=== PATIENT | female | born 1975 | race Caucasian/White ===

== ENCOUNTER 2019-05-31 10:23 | Emergency (ER) | payer OTHER ==
[2019-05-31] MEDS ORDERED: SODIUM CHLORIDE 0.9% 1,000 ML IV ONE ×2 (11:51→14:08)
[2019-05-31] MEDS ORDERED: DEXAMETHASONE 10 MG/ML VIAL IVP STA (11:51)
--- NOTE | 2019-05-31 11:54 | ED Physician Documentation ---
History of Present Illness - Stated complaint Stated Complaint: BODY ACHES - Chief complaint Chief Complaint: Fever - History obtained from History obtained from: Patient, Family - History of Present Illness Timing: Other (3 months ago) - Additonal information Additional information: 43-year-old female with a history of chronic fatigue complains of feeling weak and achy for the past 3 months. She states that she has been hiding this and she does not have an acute illness that she can register. She states that she has increased weakness decreased appetite aversion to fluids sweats and insomnia. Review of Systems Constitutional: reports: Chills, Myalgias, Fatigue, Sweats. denies: Fever Eyes: denies: Decreased vision Ears: denies: Ear pain Nose: reports: Congestion. denies: Rhinorrhea / runny nose Throat: denies: Sore throat Cardiac: denies: Chest pain / pressure, Palpitations Respiratory: reports: Cough. denies: Dyspnea GI: denies: Abdominal Pain, Nausea, Vomiting, Diarrhea : denies: Dysuria, Frequency Skin: denies: Rash Musculoskeletal: denies: Neck pain, Back pain, Extremity pain Neurologic: reports: Generalized weakness, Altered mental status. 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 - Present Medications Home Medications: Ambulatory Orders Medication Instructions Recorded Confirmed Dextroamphetamine/Amphetamine 05/31/19 [Adderall 10 mg Tablet] Levothyroxine Sodium 05/31/19 Promethazine [Phenergan] 1 05/31/19 Sulfamethoxazole/Trimethoprim 1 each PO BID #10 tablet 05/31/19 [Sulfamethoxazole-Tmp Ds Tablet] traZODone [Desyrel] 50 mg PO HS #30 tablet 05/31/19 - Allergies Allergies/Adverse Reactions: Allergies Allergy/AdvReac Type Severity Reaction Status Date / Time acetaminophen [From Percocet] Allergy Unknown Verified 05/31/19 10:40 hydrocodone [From Vicodin] Allergy Unknown Verified 05/31/19 10:40 oxycodone [From Percocet] Allergy Unknown Verified 05/31/19 10:40 Penicillins Allergy Unknown Verified 05/31/19 10:40 - Social History Does the pt smoke?: No Smoking Status: Never smoker Does the pt drink ETOH?: No Does the pt have substance abuse?: No PD ED PE NORMAL - Vitals Vital signs reviewed: Yes (hypertensive ) - General General: Well developed/nourished, Other (pale appearing female with dry mucous membranes appears anxious and is withdrawn.) - HEENT HEENT: Atraumatic, PERRL, EOMI, Ears normal, Pharynx benign, Other (dry mucous m embranes ) - Neck Neck: Supple, no meningeal sign, No bony TTP - Cardiac Cardiac: RRR, No murmur - Respiratory Respiratory: No respiratory distress, Clear bilaterally - Abdomen Abdomen: Normal bowel sounds, Soft, Non tender, Non distended, No organomegaly - Back Back: No CVA TTP, No spinal TTP - Derm Derm: Normal color, Warm and dry, No rash - Extremities Extremities: No deformity, No edema - Neuro Neuro: duct maker 2-12 intact, No motor deficit, No sensory deficit, Normal speech Eye Opening: Spontaneous Motor: Obeys Commands Verbal: Oriented GCS Score: 15 - Psych Psych: Other (mood is defeated and the affect is blunted. There is no flight of ideas or pressured speech. ) Results - Vitals Vitals: Vital Signs - 24 hr 05/31/19 05/31/19 05/31/19 10:34 11:21 12:46 Temperature 37.1 C 37.3 C Heart Rate 84 76 Respiratory 19 28 H Rate Blood Pressure 144/75 H 123/94 H O2 Saturation 100 100 05/31/19 14:30 Temperature Heart Rate 76 Respiratory 24 Rate Blood Pressure 128/86 H O2 Saturation 100 Oxygen O2 Source Room air - Labs Labs: Laboratory Tests 05/31/19 05/31/19 05/31/19 10:44 12:15 12:15 WBC 5.9 RBC 4.25 Hgb 14.2 Hct 40.7 MCV 95.8 MCH 33.4 H MCHC 34.9 RDW 12.0 Plt Count 339 MPV 9.5 Neut # (Auto) 4.0 Lymph # (Auto) 1.3 L [place] # (Auto) 0.4 Eos # (Auto) 0.1 Baso # (Auto) 0.0 Absolute Nucleated RBC 0.00 Nucleated RBC % 0.0 Sodium 141 Potassium 3.2 L Chloride 105 Carbon Dioxide 20 L Anion Gap 16.0 H BUN 8 Creatinine 0.6 Estimated GFR (MDRD) 109 Glucose 107 H Lactic Acid Calcium 10.1 Total Bilirubin 0.9 AST 20 ALT 22 Alkaline Phosphatase 91 Total Protein 8.1 Albumin 5.1 Globulin 3.0 Albumin/Globulin Ratio 1.7 Lipase 28 TSH Urine Color Urine Clarity Urine pH Ur Specific [place] Urine Protein Urine Glucose (UA) Urine Ketones Urine Occult Blood Urine Nitrite Urine Bilirubin Urine Urobilinogen Ur Leukocyte Esterase Urine RBC Urine WBC Ur Squamous Epith Cells Urine Bacteria Ur Microscopic Review Urine Culture Comments Influenza A (Rapid) Negative Influenza B (Rapid) Negative 05/31/19 05/31/19 05/31/19 12:15 12:15 12:55 WBC RBC Hgb Hct MCV MCH MCHC RDW Plt Count MPV Neut # (Auto) Lymph # (Auto) [place] # (Auto) Eos # (Auto) Baso # (Auto) Absolute Nucleated RBC Nucleated RBC % Sodium Potassium Chloride Carbon Dioxide Anion Gap BUN Creatinine Estimated GFR (MDRD) Glucose Lactic Acid 1.5 Calcium Total Bilirubin AST ALT Alkaline Phosphatase Total Protein Albumin Globulin Albumin/Globulin Ratio Lipase TSH 4.08 Urine Color YELLOW Urine Clarity CLEAR Urine pH 8.0 H Ur Specific [place] 1.015 Urine Protein NEGATIVE Urine Glucose (UA) NEGATIVE Urine Ketones 40 H Urine Occult Blood NEGATIVE Urine Nitrite NEGATIVE Urine Bilirubin NEGATIVE Urine Urobilinogen 0.2 (NORMAL) Ur Leukocyte Esterase SMALL H Urine RBC 0-5 Urine WBC 6-10 H Ur Squamous Epith Cells FEW Squamous Urine Bacteria Rare Ur Microscopic Review INDICATED Urine Culture Comments INDICATED Influenza A (Rapid) Influenza B (Rapid) - Rads (name of study) chest Radiology: Prelim report reviewed (Impression: Normal single view chest. No active disease.), EMP read indepedently, See rad report Procedures - IVC sono (time) 1150 Bedside IVC sono: IVC measures (cm) (0.78), Dehydration (est 2 liters deficit) PD MEDICAL DECISION MAKING - ED course Complexity details: reviewed results, re-evaluated patient, considered differential, d/w patient, d/w family ED course: 43-year-old female with a 3-month history of poor sleep and agitation with overall pain and now weakness is found to be dehydrated and has urinary tract infection. She is administered saline and Rocephin. I have discussed with the patient the likely diagnosis of depression and treatment required for improvement including improved sleep sleep hygiene. She does acknowledge auditory hallucinations associated with her sleep deprivation. We will start her on some trazodone as well as antibiotic for her urinary tract infection. Departure - Departure Disposition: 01 Home, Self Care Clinical Impression: Dehydration Urinary tract infection Qualifiers: Urinary tract infection type: acute cystitis Hematuria presence: without hematuria Qualified Code(s): N30.00 - Acute cystitis without hematuria Depression Qualifiers: Depression Type: unspecified Qualified Code(s): F32.9 - Major depressive disorder, single episode, unspecified Condition: Stable Instructions: ED Dehydration, ED Depression, ED UTI Cystitis Female Follow-Up: George Salas MD [Primary Care Provider] - Prescriptions: Sulfamethoxazole/Trimethoprim [Sulfamethoxazole-Tmp Ds Tablet] 1 each PO BID #10 tablet traZODone [Desyrel] 50 mg PO HS #30 tablet
[2019-05-31 12:25] LABS: BASOPHILS % (AUTO) 0.7 %; EOSINOPHILS # (AUTO) 0.1 10^3/uL (0.0-0.7); EOSINOPHILS % (AUTO) 2.4 %; HGB - HEMOGLOBIN 14.2 g/dL (12.0-16.0); LYMPHOCYTES # (AUTO) 1.3 10^3/uL (1.5-3.5); LYMPHOCYTES % (AUTO) 22.3 %; MEAN CORPUSCULAR HEMOGLOBIN 33.4 pg (27.0-31.0); MEAN CORPUSCULAR HGB CONC 34.9 g/dL (32.0-36.0); MEAN CORPUSCULAR VOLUME 95.8 fL (81.0-99.0); MEAN PLATELET VOLUME 9.5 fL (7.9-10.8); MONOCYTES # (AUTO) 0.4 10^3/uL (0.0-1.0); MONOCYTES % (AUTO) 6.9 %; NEUTROPHILS % (AUTO) 67.4 %; PLT - PLATELET COUNT 339 10^3/uL (130-450); RED BLOOD COUNT 4.25 10^6/uL (4.20-5.40); WHITE BLOOD COUNT 5.9 x10^3/uL (4.8-10.8)
[2019-05-31 12:39] LABS: ALBUMIN 5.1 g/dL (3.2-5.5); ALBUMIN/GLOBULIN RATIO 1.7 (1.0-2.2); BILIRUBIN,TOTAL 0.9 mg/dL (0.2-1.0); CALCIUM 10.1 mg/dL (8.5-10.3); CREATININE 0.6 mg/dL (0.4-1.0); TOTAL PROTEIN 8.1 g/dL (6.7-8.2)
--- NOTE | 2019-05-31 12:39 | XRAY Report ---
Reason: weakness cough Procedure Date: 05/31/2019 Accession Number: [id number] / [id number] Procedure: XR - Chest 1 View X-Ray CPT Code: 12290 Final Report FULL RESULT: EXAM: CHEST RADIOGRAPHY EXAM DATE: 05/31/2019 12:05 PM. CLINICAL HISTORY: Weakness cough. COMPARISON: None. TECHNIQUE: 1 view. FINDINGS: Lungs/Pleura: No focal opacities evident. No pleural effusion. No pneumothorax. Mediastinum: Within exam limitations, the cardiomediastinal contour is normal. Other: None. IMPRESSION: Normal single view chest. No active disease. RADIA
[2019-05-31 13:19] LABS: BILIRUBIN,URINE NEGATIVE (NEGATIVE); GLUCOSE, URINE (UA) NEGATIVE (NEGATIVE); KETONES,URINE (UA) 40 mg/dL (NEGATIVE); LEUKOCYTE ESTERASE, URINE SMALL (NEGATIVE); NITRITE,URINE NEGATIVE (NEGATIVE); OCCULT BLOOD,URINE NEGATIVE (NEGATIVE); PROTEIN,URINE NEGATIVE (NEGATIVE); UROBILINOGEN,URINE 0.2 (NORMAL) E.U./dL (NORMAL)
[2019-05-31 13:25] LABS: CLARITY,URINE CLEAR (CLEAR)
[2019-05-31 13:32] LABS: RBC,URINE 0-5 /HPF (0-5); SQUAMOUS EPITHELIAL CELL,UR FEW Squamous (<= Few)
[2019-05-31 13:33] LABS: BACTERIA,URINE Rare /HPF (None Seen)
[2019-05-31] MEDS ORDERED: cefTRIAXone 1 GM in SODIUM CHLORIDE 0.9% MINIBAG 100 ML IV STA (14:08)
[2019-05-31] MEDS ORDERED: POTASSIUM CHLORIDE 20 MEQ TABLET PO STA (14:09)
[2019-05-31 15:51] VITALS: BP 122/88
== END 2019-05-31 15:51 | disposition home or self-care (01) ==
LOC: ED 10:23
DX: E86.0 Dehydration (principal); N30.00 Acute cystitis without hematuria; F32.9 Major depressive disorder, single episode, unspecified
CPT/HCPCS: 36415; 71045; 81001; 83605; 83690; 87040; 87086; 87275; 87276; 96361; 96374; 96375; 99283; 99284; A9270; 80053; 81003; 84443; 85025

== ENCOUNTER 2021-07-26 13:59 | Outpatient (CLI) | payer OTHER ==
[2021-07-26 17:56] LABS: BASOPHILS # (AUTO) 0.1 10^3/uL (0.0-0.1); BASOPHILS % (AUTO) 0.7 %; EOSINOPHILS % (AUTO) 0.4 %; HCT - HEMATOCRIT 45.5 % (37.0-47.0); HGB - HEMOGLOBIN 14.9 g/dL (12.0-16.0); LYMPHOCYTES # (AUTO) 2.1 10^3/uL (1.5-3.5); LYMPHOCYTES % (AUTO) 30.8 %; MEAN CORPUSCULAR HEMOGLOBIN 32.3 pg (27.0-31.0); MEAN CORPUSCULAR HGB CONC 32.7 g/dL (32.0-36.0); MEAN CORPUSCULAR VOLUME 98.7 fL (81.0-99.0); MEAN PLATELET VOLUME 9.5 fL (7.9-10.8); MONOCYTES # (AUTO) 0.4 10^3/uL (0.0-1.0); MONOCYTES % (AUTO) 6.3 %; NEUTROPHILS # (AUTO) 4.2 10^3/uL (1.5-6.6); NEUTROPHILS % (AUTO) 61.5 %; PLT - PLATELET COUNT 447 10^3/uL (130-450); RED BLOOD COUNT 4.61 10^6/uL (4.20-5.40); RED CELL DISTRIBUTION WIDTH 13.2 % (12.0-15.0); WHITE BLOOD COUNT 6.8 x10^3/uL (4.8-10.8)
[2021-07-26 18:15] LABS: ALBUMIN 4.8 g/dL (3.2-5.5); ALBUMIN/GLOBULIN RATIO 1.2 (1.0-2.2); ALKALINE PHOSPHATASE 104 IU/L (42-121); ALT ALANINE AMINOTRANSFERASE 17 IU/L (10-60); AST ASPARTATE AMINOTRANSFERASE 20 IU/L (10-42); BILIRUBIN,TOTAL 0.6 mg/dL (0.2-1.0); BUN - BLOOD UREA NITROGEN 13 mg/dL (6-20); CALCIUM 9.9 mg/dL (8.5-10.3); CARBON DIOXIDE - CO2 27 mmol/L (21-32); CHLORIDE 98 mmol/L (101-111); CHOL/HDL RATIO 3.1 (<4.4); CHOLESTEROL 263 mg/dL; CREATININE 0.8 mg/dL (0.4-1.0); GFR - MDRD 78 (>89); GLUCOSE 110 mg/dL (70-100); HDL CHOLESTEROL 84 mg/dL; LDL CHOLESTEROL,CALCULATED 153 mg/dL; LDL/HDL RATIO 1.8 (<4.4); POTASSIUM 3.8 mmol/L (3.5-5.0); SODIUM 138 mmol/L (135-145); TOTAL PROTEIN 8.9 g/dL (6.7-8.2); TRIGLYCERIDES 129 mg/dL; VLDL CHOLESTEROL 26 mg/dL
[2021-07-26 18:25] LABS: THYROID STIMULATING HORMONE 4.55 uIU/mL (0.34-5.60)
== END 2021-07-26 14:00 | disposition home or self-care (01) ==
LOC: LAB.N 13:59
PROVIDERS: ATTEND Physician Assistant
DX: E78.5 Hyperlipidemia, unspecified (principal); E03.9 Hypothyroidism, unspecified; Z13.9 Encounter for screening, unspecified
CPT/HCPCS: 36415; 80050; 80061; 82306; 83721

== ENCOUNTER 2021-10-17 16:23 | Outpatient (CLI) | payer OTHER ==
--- NOTE | 2021-10-18 10:12 | XRAY Report ---
PROCEDURE: Scapula 2 View LT INDICATIONS: L SCAPULA PX TECHNIQUE: 2 views of the scapula were acquired. COMPARISON: None FINDINGS: Bones: No fractures or dislocations. No suspicious bony lesions. Visualized ribs appear intact. Soft tissues: Overlying soft tissues appear normal. IMPRESSION: Normal left scapula Reviewed by: Irvin Thomas on 10/18/2021 10:11 AM PDT Approved by: Irvin Thomas on 10/18/2021 10:11 AM PDT Station ID: [id number]
--- NOTE | 2021-10-18 10:13 | XRAY Report ---
PROCEDURE: Shoulder 3 View LT INDICATIONS: L SHOULDER PX TECHNIQUE: Views of the location were acquired. COMPARISON: None. FINDINGS: Bones: No fractures or dislocations. No suspicious bony lesions. Soft tissues: No suspicious soft tissue calcifications. IMPRESSION: Normal left shoulder Reviewed by: Irvin Thomas on 10/18/2021 10:12 AM PDT Approved by: Irvin Thomas on 10/18/2021 10:12 AM PDT Station ID: [id number]
--- NOTE | 2021-10-18 10:18 | XRAY Report ---
PROCEDURE: Ribs w/PA Chest LT INDICATIONS: L RIB PX TECHNIQUE: 3 views of the left ribs were acquired, along with a single view chest. COMPARISON: None FINDINGS: Surgical changes and devices: None. Bones and chest wall: No fractures or dislocations. No suspicious bony lesions. Overlying soft tis sues appear unremarkable. Lungs and pleura: No pleural effusions or pneumothorax. Lungs appear clear. Mediastinum: Mediastinal contours appear normal. Heart size is normal. IMPRESSION: Normal left ribs and chest x-ray. No acute traumatic abnormality. Reviewed by: Irvin Thomas on 10/18/2021 10:16 AM PDT Approved by: Irvin Thomas on 10/18/2021 10:16 AM PDT Station ID: [id number]
== END 2021-10-17 16:24 | disposition home or self-care (01) ==
LOC: DI.N 16:23
PROVIDERS: ATTEND Physician Assistant
DX: R07.81 Pleurodynia (principal); M25.512 Pain in left shoulder; M89.8X1 Other specified disorders of bone, shoulder

== ENCOUNTER 2021-11-22 14:19 | Outpatient (CLI) | payer OTHER ==
--- NOTE | 2021-11-30 10:34 | Mammography Report ---
BILATERAL DIGITAL SCREENING MAMMOGRAM 3D/2D: 11/22/2021 CLINICAL: Routine screening. Comparison is made to exam dated: 01/17/2017 mammogram - [facility]. Both breasts are almost entirely fatty (category a/<25% glandular tissue). No significant masses, calcifications, or other findings are seen in either breast. There has been no significant interval change. IMPRESSION: NEGATIVE There is no mammographic evidence of malignancy. A 1 year screening mammogram is recommended. Based on the Tyrer Cuzick model (a risk assessment model) the patients lifetime risk is 5.6% and her 10 year risk is 1.0%. According to the ACR, ACS, and NCCN guidelines, an annual breast MRI exam nina g with mammogram is recommended if the patients lifetime risk is 20% or greater. This exam was interpreted at Station ID: [id number]. NOTE: For mammograms, a report in lay terms will be sent to the patient. Approximately 15% of breast malignancies will not be visualized mammographically. In the management of a palpable breast mass, a negative mammogram must not discourage biopsy of a clinically suspicious lesion. Electronically Signed By: Terence Spears M.D., jr/yamile:11/29/2021 11:29:32 ACR BI-RADS Category 1: Negative 3341F PARENCHYMAL PATTERN: (F) - The breast(s) demonstrate(s) diffuse fatty replacement. BI-RADS CATEGORY: (1) - 1 RECOMMENDATION: (ANNUAL) - Recommend routine annual screening mammography. [id number] 1 year screening LATERALITY: (B)
== END 2021-11-22 14:20 | disposition home or self-care (01) ==
LOC: DI.N 14:19
PROVIDERS: ATTEND Physician Assistant
DX: Z12.31 Encounter for screening mammogram for malignant neoplasm of breast (principal)

== ENCOUNTER 2022-01-15 17:06 | Outpatient (CLI) | payer OTHER ==
--- NOTE | 2022-01-16 13:43 | XRAY Report ---
PROCEDURE: Foot 3 View LT INDICATIONS: Left foot pain TECHNIQUE: Three views of the foot were acquired. COMPARISON: None. FINDINGS: No abnormal osseous erosion or calcified soft tissue mass adjacent to the 1st MTP. There is no signif icant hallux valgus or degenerative change of the 1st MTP. There does appear to be an edematous appea corry of the soft tissues with a probable joint effusion. No significant arthritic or degenerative ch anges in the remainder of the foot. No acute lytic or blastic osseous lesion. IMPRESSION: No definite plain radiographic evidence of gout although there is small to moderate 1st MTP joint eff usion and an edematous appearance of the adjacent soft tissues. Gout cannot be strictly excluded in t his instance. Joint fluid analysis would be recommended if there is strong clinical suspicion. Reviewed by: Terence Spears MD on 01/16/2022 1:41 PM PDT Approved by: Terence Spears MD on 01/16/2022 1:41 PM PDT Station ID: [id number]
== END 2022-01-15 17:07 | disposition home or self-care (01) ==
LOC: DI.N 17:06
PROVIDERS: ATTEND Physician Assistant
DX: M79.672 Pain in left foot (principal); M25.475 Effusion, left foot
CPT/HCPCS: 36415; 84550

== ENCOUNTER 2022-01-15 17:13 | Outpatient (CLI) | payer OTHER | END 2022-01-15 17:14 | disposition home or self-care (01) | LOC: LAB.N 17:13 | PROVIDERS: ATTEND Physician Assistant | DX: M79.672 Pain in left foot (principal) | CPT/HCPCS: 36415; 84550 ==

== ENCOUNTER 2022-01-31 12:08 | Outpatient (CLI) | payer OTHER ==
[2022-01-31 17:44] LABS: BASOPHILS % (AUTO) 0.1 %; HCT - HEMATOCRIT 41.7 % (37.0-47.0); HGB - HEMOGLOBIN 13.7 g/dL (12.0-16.0); LYMPHOCYTES # (AUTO) 1.9 10^3/uL (1.5-3.5); LYMPHOCYTES % (AUTO) 12.7 %; MEAN CORPUSCULAR HGB CONC 32.9 g/dL (32.0-36.0); MEAN CORPUSCULAR VOLUME 100.5 fL (81.0-99.0); MEAN PLATELET VOLUME 9.1 fL (7.9-10.8); MONOCYTES # (AUTO) 0.8 10^3/uL (0.0-1.0); NEUTROPHILS # (AUTO) 12.3 10^3/uL (1.5-6.6); NEUTROPHILS % (AUTO) 81.7 %; PLT - PLATELET COUNT 555 10^3/uL (130-450); RED BLOOD COUNT 4.15 10^6/uL (4.20-5.40); WHITE BLOOD COUNT 15.1 x10^3/uL (4.8-10.8)
[2022-01-31 18:06] LABS: ALBUMIN 4.4 g/dL (3.2-5.5); ALBUMIN/GLOBULIN RATIO 1.2 (1.0-2.2); ALKALINE PHOSPHATASE 118 IU/L (42-121); ALT ALANINE AMINOTRANSFERASE 22 IU/L (10-60); AST ASPARTATE AMINOTRANSFERASE 19 IU/L (10-42); BILIRUBIN,TOTAL 0.5 mg/dL (0.2-1.0); BUN - BLOOD UREA NITROGEN 16 mg/dL (6-20); CALCIUM 9.9 mg/dL (8.5-10.3); CARBON DIOXIDE - CO2 25 mmol/L (21-32); CHLORIDE 100 mmol/L (101-111); CHOL/HDL RATIO 3.3 (<4.4); CHOLESTEROL 254 mg/dL; CREATININE 0.8 mg/dL (0.4-1.0); GFR - MDRD 77 (>89); GLUCOSE 120 mg/dL (70-100); HDL CHOLESTEROL 76 mg/dL; LDL CHOLESTEROL,CALCULATED 157 mg/dL; LDL/HDL RATIO 2.1 (<4.4); POTASSIUM 4.2 mmol/L (3.5-5.0); SODIUM 135 mmol/L (135-145); TOTAL PROTEIN 8.1 g/dL (6.7-8.2); TRIGLYCERIDES 104 mg/dL; VLDL CHOLESTEROL 21 mg/dL
[2022-01-31 18:13] LABS: THYROID STIMULATING HORMONE 2.16 uIU/mL (0.34-5.60)
[2022-01-31 20:53] LABS: ESTIMATED AVERAGE GLUCOSE 111 mg/dL (70-100); HEMOGLOBIN A1c% 5.5 % (4.27-6.07)
== END 2022-01-31 12:09 | disposition home or self-care (01) ==
LOC: LAB.N 12:08
PROVIDERS: ATTEND Physician Assistant
DX: E78.5 Hyperlipidemia, unspecified (principal); R73.01 Impaired fasting glucose; I10 Essential (primary) hypertension
CPT/HCPCS: 36415; 80050; 80061; 83036; 83721

== ENCOUNTER 2022-02-06 08:00 | Outpatient (CLI) | payer OTHER ==
[2022-02-06 20:57] LABS: INFLUENZA A H3- RESP PCR PANEL DETECTED; INFLUENZA B - RESP PCR PANEL NOT DETECTED; RSV- RESP PCR PANEL NOT DETECTED; SARS-CoV-2 -RESP PCR PANEL NOT DETECTED
== END 2022-02-06 23:59 | disposition home or self-care (01) ==
LOC: LAB.N 08:00
PROVIDERS: ATTEND Nurse Practitioner Family
DX: R06.00 Dyspnea, unspecified (principal); Z20.822 Contact with and (suspected) exposure to COVID-19
CPT/HCPCS: 87637

== ENCOUNTER 2022-02-06 16:01 | Outpatient (CLI) | payer OTHER ==
--- NOTE | 2022-02-06 16:56 | XRAY Report ---
PROCEDURE: Chest 2 View X-Ray INDICATIONS: WHEEZING TECHNIQUE: 2 view(s) of the chest. COMPARISON: None. FINDINGS: Surgical changes and devices: None. Lungs and pleura: No pleural effusions or pneumothorax. Lungs are clear. Mediastinum: Mediastinal contours are normal. Heart size is normal. Bones and chest wall: No suspicious bony abnormalities. Soft tissues appear unremarkable. IMPRESSION: No acute cardiopulmonary disease process. Reviewed by: Jess Coffey MD, PhD on 02/06/2022 4:54 PM PST Approved by: Jess Coffey MD, PhD on 02/06/2022 4:54 PM PST Station ID: [id number]
== END 2022-02-06 16:02 | disposition home or self-care (01) ==
LOC: DI.N 16:01
PROVIDERS: ATTEND Nurse Practitioner Family
DX: J45.51 Severe persistent asthma with (acute) exacerbation (principal); Z20.822 Contact with and (suspected) exposure to COVID-19
CPT/HCPCS: 87637

== ENCOUNTER 2022-03-15 12:49 | Outpatient (CLI) | payer OTHER ==
[2022-03-15 17:57] LABS: HCT - HEMATOCRIT 39.2 % (37.0-47.0); HGB - HEMOGLOBIN 12.6 g/dL (12.0-16.0); MEAN CORPUSCULAR HEMOGLOBIN 32.9 pg (27.0-31.0); MEAN CORPUSCULAR HGB CONC 32.1 g/dL (32.0-36.0); MEAN CORPUSCULAR VOLUME 102.3 fL (81.0-99.0); MEAN PLATELET VOLUME 9.4 fL (7.9-10.8); RED BLOOD COUNT 3.83 10^6/uL (4.20-5.40); RED CELL DISTRIBUTION WIDTH 13.5 % (12.0-15.0); WHITE BLOOD COUNT 6.9 x10^3/uL (4.8-10.8)
[2022-03-15 18:12] LABS: URIC ACID 5.4 mg/dL (2.6-7.2)
[2022-03-15 18:20] LABS: CRP - C-REACTIVE PROTEIN < 1.0 mg/dL (0-1.0)
[2022-03-15 18:30] LABS: RHEUMATOID FACTOR NEGATIVE (Negative)
[2022-03-15 18:41] LABS: THYROID STIMULATING HORMONE 2.69 uIU/mL (0.34-5.60)
[2022-03-16 16:08] LABS: ANTI-DNA (DS) AB QN 1 IU/mL (0-9)
[2022-03-18 18:06] LABS: CYCLIC CITRULLINATED PEP IGG/A <1 units (0-19)
== END 2022-03-15 12:50 | disposition home or self-care (01) ==
LOC: LAB.N 12:49
PROVIDERS: ATTEND Nurse Practitioner
DX: L30.9 Dermatitis, unspecified (principal); R00.0 Tachycardia, unspecified
CPT/HCPCS: 36415; 81599; 84443; 84550; 85027; 85651; 86038; 86140; 86200; 86225; 86430

== ENCOUNTER 2022-08-30 23:16 | Outpatient (CLI) | payer OTHER | END 2022-08-30 23:59 | disposition critical access hospital (66) | LOC: EMS 23:16 | DX: Z04.6 Encounter for general psychiatric examination, requested by authority (principal); R45.851 Suicidal ideations; R45.1 Restlessness and agitation | CPT/HCPCS: A0425; A0429 ==

== ENCOUNTER 2022-08-30 23:35 | Emergency (ER) | payer OTHER ==
--- OUTSIDE RECORDS SUMMARY | 2022-08-31 00:23 | EXTERNAL MEDICAL SUMMARY RPT | Continuity of Care Document ---
Author Name Unknown Address [address] [place] [address] Phone Organization [facility] Address [address] [place] [address] Phone Care Team Providers Care Test Preparer Name Role Phone System Maintenance Unavailable Unavailable Medications date description facility 2022-08-29 00:00 buspirone All 2022-07-26 00:00 dextroamphetamine-amphetamine A 2022-08-01 00:00 dextroamphetamine-amphetamine A 2022-08-29 00:00 fexofenadine All 2022-08-29 00:00 buspirone All 2022-08-29 00:00 fexofenadine [facility] 2022-08-29 00:00 fexofenadine All 2022-08-29 00:00 albuterol sulfate All 2022-08-29 00:00 albuterol sulfate All 2022-08-29 00:00 buspirone All 2022-07-26 00:00 dextroamphetamine-amphetamine A 2022-08-01 00:00 dextroamphetamine-amphetamine A 2022-08-29 00:00 albuterol sulfate All 2022-07-26 00:00 dextroamphetamine-amphetamine A 2022-08-01 00:00 dextroamphetamine-amphetamine A 2022-08-29 00:00 albuterol sulfate All 2022-07-26 00:00 dextroamphetamine-amphetamine A 2022-08-01 00:00 dextroamphetamine-amphetamine A 2022-08-29 00:00 buspirone All 2022-08-29 00:00 fexofenadine All
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
[2022-08-31 04:50] LABS: BASOPHILS # (AUTO) 0.1 10^3/uL (0.0-0.1); BASOPHILS % (AUTO) 0.7 %; EOSINOPHILS # (AUTO) 0.1 10^3/uL (0.0-0.7); EOSINOPHILS % (AUTO) 1.2 %; HCT - HEMATOCRIT 38.9 % (37.0-47.0); HGB - HEMOGLOBIN 12.9 g/dL (12.0-16.0); LYMPHOCYTES # (AUTO) 2.5 10^3/uL (1.5-3.5); LYMPHOCYTES % (AUTO) 29.8 %; MEAN CORPUSCULAR HEMOGLOBIN 32.6 pg (27.0-31.0); MEAN CORPUSCULAR HGB CONC 33.2 g/dL (32.0-36.0); MEAN CORPUSCULAR VOLUME 98.2 fL (81.0-99.0); MEAN PLATELET VOLUME 8.6 fL (7.9-10.8); MONOCYTES # (AUTO) 0.6 10^3/uL (0.0-1.0); MONOCYTES % (AUTO) 6.9 %; NEUTROPHILS # (AUTO) 5.1 10^3/uL (1.5-6.6); NEUTROPHILS % (AUTO) 61.2 %; PLT - PLATELET COUNT 444 10^3/uL (130-450); RED BLOOD COUNT 3.96 10^6/uL (4.20-5.40); RED CELL DISTRIBUTION WIDTH 12.5 % (12.0-15.0); WHITE BLOOD COUNT 8.3 x10^3/uL (4.8-10.8)
[2022-08-31 05:07] LABS: ACETAMINOPHEN < 10 ug/mL (10-30); ALBUMIN 3.9 g/dL (3.2-5.5); ALKALINE PHOSPHATASE 129 IU/L (42-121); ALT ALANINE AMINOTRANSFERASE 16 IU/L (10-60); AST ASPARTATE AMINOTRANSFERASE 18 IU/L (10-42); BILIRUBIN,TOTAL 0.7 mg/dL (0.2-1.0); BUN - BLOOD UREA NITROGEN 8 mg/dL (6-20); CALCIUM 8.8 mg/dL (8.5-10.3); CARBON DIOXIDE - CO2 23 mmol/L (21-32); CHLORIDE 103 mmol/L (101-111); CK- CREATINE KINASE 90 IU/L (22-269); CREATININE 0.7 mg/dL (0.4-1.0); ETOH - ETHANOL < 5.0 mg/dL; GFR - MDRD 90 (>89); GLUCOSE 99 mg/dL (70-100); LIPASE 32 U/L (22-51); MAGNESIUM 1.7 mg/dL (1.7-2.8); POTASSIUM 3.6 mmol/L (3.5-5.0); SALICYLATE < 6.0 mg/dL; SODIUM 135 mmol/L (135-145); TOTAL PROTEIN 7.7 g/dL (6.7-8.2)
[2022-08-31 06:11] LABS: MUDS CUTOFF CONCENTRATIONS CUTOFF CONC BELOW:
[2022-08-31 06:13] LABS: BILIRUBIN,URINE NEGATIVE (NEGATIVE); GLUCOSE, URINE (UA) NEGATIVE (NEGATIVE); KETONES,URINE (UA) NEGATIVE (NEGATIVE); LEUKOCYTE ESTERASE, URINE NEGATIVE (NEGATIVE); NITRITE,URINE NEGATIVE (NEGATIVE); OCCULT BLOOD,URINE NEGATIVE (NEGATIVE); PROTEIN,URINE NEGATIVE (NEGATIVE); UROBILINOGEN,URINE 0.2 (NORMAL) E.U./dL (NORMAL)
[2022-08-31 06:16] LABS: CLARITY,URINE CLEAR (CLEAR)
[2022-08-31 06:22] LABS: AMPHETAMINE SCREEN,URINE POSITIVE (NEGATIVE); BARBITURATE SCREEN,UR NEGATIVE (NEGATIVE); BENZODIAZEPINES SCREEN, URINE NEGATIVE (NEGATIVE); COCAINE SCREEN URINE NEGATIVE (NEGATIVE); METHADONE SCREEN, URINE NEGATIVE (NEGATIVE); METHAMPHETAMINES SCREEN, URINE NEGATIVE (NEGATIVE); OPIATE SCREEN, URINE NEGATIVE (NEGATIVE); OXYCODONE SCREEN, URINE NEGATIVE (NEGATIVE); PROPOXYPHENE SCREEN, URINE NEGATIVE (NEGATIVE); THC CANNABINOID SCREEN, URINE POSITIVE (NEGATIVE); TRICYCLIC ANTIDEPRESSANT,URINE NEGATIVE (NEGATIVE)
[2022-08-31] MEDS ORDERED: IBUPROFEN 600 MG TABLET PO STA (08:18)
[2022-08-31 08:52] VITALS: BP 140/89
--- NOTE | 2022-08-31 09:51 | ED Physician Documentation ---
ED Addendum - Addendum Addendum: 08/31/22 09:49 The patient was yelling loudly at staff and states she was unhappy being here in the ER. She was swearing a lot. She was not making any threats and was not attempting to leave. She was not physically interacting. I tried to address verbally anything we can do to help her with water food medications. She states she did not want anything at this time. DCR was already requested by the prior physician and the interview would be soon. We will see the result of that. At this point the patient is not expressing any suicidal ideation but apparently was earlier in the night. However the patient is not interacting in a way to be able to have a calm discussion and contract for safety at this point. I would await DCR interview.
== END 2022-08-31 11:36 ==
LOC: EDUNIT# → ED 23:35
DX: R45.851 Suicidal ideations (principal); F32.A Depression, unspecified; Z20.822 Contact with and (suspected) exposure to COVID-19; E03.9 Hypothyroidism, unspecified; Z79.899 Other long term (current) drug therapy
CPT/HCPCS: 36415; 80053; 80306; 80307; 80320; 80329; 81003; 82550; 83690; 83735; 84443; 85025; 87635; 99284; 99285; A9270; 81001; 87086